=== PATIENT | female | born 1985 | race Caucasian/White ===

== ENCOUNTER 2018-08-04 00:11 | Inpatient (IN) | payer BC ==
--- OUTSIDE RECORDS SUMMARY | 2018-08-04 06:34 | XMS REPORT | Clinical Summary ---
:1985 Author Organization [facility] Address [address] [place] [address] Care Team Providers Name Role Phone Asked, No Pcp Primary Care Provider Unavailable Allergies Not on File Medications Not on file Active Problems Problem Noted Date CIDP (chronic inflammatory demyelinating polyneuropathy) CMT (cervical motion tenderness) Muscle weakness Social History Tobacco Use Types Packs/Day Years Used Date Never Assessed Sex Assigned at Date Recorded Not on file Job Start Date Occupation Industry Not on file Not on file Not on file Travel History Travel Start Travel End No recent travel history available. Last Filed Vital Signs Not on file Plan of Treatment Health Maintenance Due Date Last Done Comments INFLUENZA VACCINE 09/30/2018 Results Not on fileafter 08/03/2017 Advance Directives Patient has advance care planning documents on file. For more information, please contact:[facility] [place] [address]
[2018-08-04] MEDS ORDERED: Ringers Lactate 1,000 ML IV PRN (06:37)
[2018-08-04] MEDS ORDERED: OXYTOCIN/LR 20 UNIT/1,000 ML BAG IV SCH ×2 (07:00→13:00)
[2018-08-04] MEDS ORDERED: Ringers Lactate 1,000 ML IV SCH (07:00)
[2018-08-04 08:04] LABS: RPR Titer ND
[2018-08-04 08:09] LABS: Urine Appearance TURBID; Urine Bilirubin NEGATIVE (NEG); Urine Blood NEGATIVE (NEG); Urine Color YELLOW; Urine Glucose NEGATIVE (NEG); Urine Protein 1+ (NEG); Urine pH 5.5 (5.0-7.0)
[2018-08-04 08:25] LABS: Urine Microscopic Reflex ORDER UMIC
[2018-08-04 08:36] LABS: Absolute Lymphocytes (CBC) 2.1 K/uL (0.7-4.9); Absolute Monocytes 0.5 K/uL (0.1-1.3); Absolute Neutrophil 8.9 K/uL (1.8-8.0); Basophils % 0.3 % (0-1.3); Eosinophils % 0.9 % (0-4.4); Hematocrit 32.1 % (36.0-45.0); Lymphocytes % 18.2 % (15.3-44.8); MPV 7.3 fL (7.6-11.3); Monocytes % 4.1 % (3.3-12.3); RBC Red Blood Cell Count 3.87 M/uL (3.86-4.86)
[2018-08-04 08:49] LABS: Urine Bacteria >50 /HPF (<20); Urine Culture Reflex Order REFLEXED; Urine RBC NONE SEEN /HPF (NONE SEEN)
[2018-08-04 09:16] LABS: Urine Appearance CLEAR; Urine Bilirubin NEGATIVE (NEG); Urine Blood NEGATIVE (NEG); Urine Color YELLOW; Urine Glucose NEGATIVE (NEG); Urine Protein NEGATIVE (NEG); Urine Specific Gravity 1.015 (1.005-1.030)
[2018-08-04 09:45] LABS: Urine Bacteria <20 /HPF (<20); Urine Culture Reflex Order NOT NEEDED; Urine RBC NONE SEEN /HPF (NONE SEEN)
[2018-08-04] MEDS ORDERED: ROPIVACAINE HCL 100 ML IV PRN (09:56)
[2018-08-04] MEDS ORDERED: FENTANYL CITR 100 MCG/2 ML IV ONE ×2 (09:56→12:00)
[2018-08-04] MEDS ORDERED: ROPIVACAINE HCL 0.2% 20ML AMP IV ONE (09:58)
[2018-08-04] MEDS ORDERED: CARBOPROST TROME 250 MCG/ML IM ONE ×3 (09:59→12:37)
[2018-08-04] MEDS ORDERED: METHYLERGONOVINE 0.2MG/ML AMP IM ONE (09:59)
[2018-08-04] MEDS ORDERED: LIDOCAINE 2% W/EPI 1:200,000 MPF 20 ML VIAL IM ONE ×2 (10:25→10:57)
[2018-08-04] MEDS ORDERED: PROMETHAZINE 25 MG/ML VIAL IV ONE (11:55)
[2018-08-04] MEDS ORDERED: FENTANYL/BUPIVACAINE/NS/PF 200 MCG/100 ML BAG EP PRN (12:00)
[2018-08-04] MEDS ORDERED: PROMETHAZINE 25 MG/ML VIAL ONE (12:10)
[2018-08-04] MEDS ORDERED: FENTANYL CITR 100 MCG/2 ML ONE (12:28)
[2018-08-04] MEDS ORDERED: FENTANYL/BUPIVACAINE/NS/PF 200 MCG/100 ML BAG EP ONE (12:28)
[2018-08-04] MEDS ORDERED: LIDOCAINE 1% MPF 30 ML VIAL SQ ONE (12:30)
[2018-08-04] MEDS ORDERED: ACETAMINOPHEN 500 MG TAB PO PRN (12:50)
[2018-08-04] MEDS ORDERED: METHYLERGONOVINE 0.2 MG TAB PO PRN (12:50)
[2018-08-04] MEDS ORDERED: CARBOPROST TROME 250 MCG/ML IM PRN (12:50)
[2018-08-04] MEDS ORDERED: METHYLERGONOVINE 0.2MG/ML AMP IM PRN (12:50)
[2018-08-04] MEDS ORDERED: IBUPROFEN 200 MG TAB PO PRN (12:50)
[2018-08-04] MEDS ORDERED: ONDANSETRON 4 MG (ODT) TAB PO PRN (12:50)
--- NOTE | 2018-08-04 12:53 | P.BOP ---
Preoperative diagnosis: 39+wk Postoperative diagnosis: Same, viable male Primary procedure: SCVD Secondary procedure: repair first degree perineal laceration Estimated blood loss: Less than 300ml Anesthesia: epidural Complications: None Transferred to: Other (271) Condition: Good
[2018-08-04] MEDS ORDERED: BUTORPHANOL 1 MG/ML INJ ONE (12:55)
[2018-08-04] MEDS ORDERED: LIDOCAINE 1% MPF 30 ML VIAL ONE (12:55)
[2018-08-04 13:57] VITALS: BMI 34.7
[2018-08-04] MEDS: Oxycodone HCl/Acetaminophen 1 TAB TAB PO PRN (14:00)
[2018-08-04 21:25] LABS: RPR (Rapid Plasma Reagin) NON-REACT (NON-REACT)
[2018-08-05] MEDS: Oxycodone HCl/Acetaminophen 1 TAB TAB PO PRN ×2 (00:04→08:35)
[2018-08-05 07:47] VITALS: TEMP 98
[2018-08-05 13:24] VITALS: BP 149/90
--- NOTE | 2018-08-05 15:19 | OP ---
Surgeon: Carlos Charles MD Ms. Solis is a 32-year-old, , female, 3, para 2-0-0-2 at 39+ weeks gesta tion, admitted for elective induction of labor secondary to term with favorable cervix. Af ter placement of epidural catheter and rupture of membranes in which clear fluid was noted, she had f irst stage of labor of approximately 4 hours, second stage of labor of less than 1 minute, delivered by spontaneous controlled vaginal delivery, a 7-pound 3-ounce male infant, 9 and 9, with milkin g of the umbilical cord toward the infant. The cord was clamped, cut, and infant placed on mother's upper abdomen. Cord blood was obtained. Placenta was spontaneously expelled and appeared to be inta ct. Intrauterine examination revealed no retained placental fragments. She suffered first-degree pe rineal laceration, which was repaired with 3-0 Vicryl suture. Estimated total blood loss was less th an 300 cc. BERNARD/JESSIE Voice ID: [id number] Report ID: [id number]
--- NOTE | 2018-08-05 19:54 | DS ---
Date of Discharge: 08/05/2018 Final Hospital Discharge Diagnoses: Term , delivered. Iron deficiency anemia. Complications: None. Procedures: Placement of epidural catheter, artificial rupture membranes, Pitocin induction of labor , spontaneous controlled vaginal delivery of viable male , repair of first-degree perineal lace ration. Hospital Course: The patient is a 32-year-old female, 3, para 2-0-0-2, at term, wh o underwent elective induction of labor, delivered a 7-pound 3-ounce male , 9 and 9. She was dismissed on the first day, ambulatory, on a select diet with routine post vaginal de livery activity restrictions, to be seen back in my office in 1 week. Lab work included an admission hemoglobin and hematocrit of 10.6 and 32.1, dismissal 30.5. She had a urinalysis showing mixed alycia a. She is Rh positive blood type. BERNARD/JESSIE Voice ID: [id number] Report ID: [id number]
[2018-08-07 04:30] LABS: HBsAG Nonreactive (Nonreactive)
== END 2018-08-05 15:05 | disposition home or self-care (01) | DRG 807 ==
LOC: 2ND-WC 06:33
PROVIDERS: ADMIT Specialist; ATTEND Specialist
PROC: 10907ZC Drainage of Amniotic Fluid, Therapeutic from Products of Conception, Via Natural or Artificial Opening (ICD-10-PCS; principal; 2018-08-04)
PROC: 10E0XZZ Delivery of Products of Conception, External Approach (ICD-10-PCS; 2018-08-04)
PROC: 0HQ9XZZ Repair Perineum Skin, External Approach (ICD-10-PCS; 2018-08-04)
DX: O70.0 First degree perineal laceration during delivery (principal); Z37.0 Single live birth; O99.02 Anemia complicating childbirth; D50.9 Iron deficiency anemia, unspecified; Z3A.39 39 weeks gestation of pregnancy
CPT/HCPCS: 36415; 81001; 81003; 81015; 85014; 85025; 86592; 86901; 87086; 87088; 87340; J0595; J2210; J2550; J2590; J2795; J3010